=== PATIENT | male | born 1930 | race Caucasian/White ===

== ENCOUNTER 2017-12-02 22:13 | Emergency (ER) | payer MEDICARE ==
[~2017-12-02] VITALS: Ht 172.7 cm; Wt 79.5 kg
[~2017-12-02 22:13] MED LIST: ASPIRIN EC81 MG PO; ATORVASTATIN CA10 MG PO; COQ-1030 M1 PO; ELIQUIS2.5 MG PO; GABAPENTIN100 MG PO; LOSARTAN POT25 MG PO; Levaquin PO; OMEGA 3-6-9 COMPLEX PO; PLAVIX75 MG PO; PRAVASTATIN SOD20 MG PO; RED YEAST600 MG PO; SAW PALMETTO450 MG PO; SAW PALMETTO500 MG PO; TOPROL XL25 MG PO; ULTRAM50 M1 PO; VITAMIN B-121000 MCG PO; VITAMIN D-3400 UNIT PO; VITAMIN E400 UNIT PO
[2017-12-02] MEDS ORDERED: VITAMIN B-12500 MCG PO (22:36)
[2017-12-02] MEDS ORDERED: [UNRECOGNIZED DRUG - CODE] PO (22:37)
[2017-12-02] MEDS ORDERED: VITAMIN E400 UNIT PO (22:38)
[2017-12-02] MEDS ORDERED: TOPROL XL100 MG PO (22:39)
[2017-12-02] MEDS ORDERED: TAMSULOSIN0.4 MG PO (22:39)
[2017-12-02 23:23] LABS: HEMATOCRIT 42.8 % (39.0-50.0); HEMOGLOBIN 14.7 g/dl (14.0-18.0); IMMATURE GRANULOCYTES 0.5 % (0.0-5.0); MEAN CELL VOLUME 93.7 fL CALC (80.0-100.0); MEAN CORPUSCULAR HGB 32.2 pG CALC (26.0-32.0); MEAN CORPUSCULAR HGB CONC 34.3 g/L CALC (32.0-36.0); NEUT# 10.93 thou/uL (1.82-7.42); RED BLOOD COUNT 4.57 mill/uL (4.70-6.10); RED CELL DISTRI WIDTH 13.6 % (11.5-15.5)
[2017-12-02 23:35] LABS: ALBUMIN 4.2 g/dL (3.2-5.0); ALKALINE PHOSPHATASE 87 u/l (38-126); ANION GAP 16 (6-22 (CALC)); BILIRUBIN, TOTAL 0.6 mg/dL (0.0-1.4); BUN 30 mg/dL (8-23); BUN/CREATININE RATIO 27 (12-20 (CALC)); CARBON DIOXIDE 22 mmol/l (22-30); CHLORIDE 104 mmol/l (95-108); CREATININE 1.1 mg/dL (0.7-1.3); GFR > 60 ML/MIN (>=60 (CALC)); GFR FOR AFR.AMER. > 60 ML/MIN (>=60 (CALC)); POTASSIUM 4.3 mmol/l (3.5-5.1); SGOT/AST 28 u/l (19-48); SODIUM 139 mmol/l (137-146); TOTAL PROTEIN 7.6 g/dL (6.3-8.2)
[2017-12-02 23:46] LABS: MYOGLOBIN 78 ng/mL (0 - 121)
[2017-12-03 00:01] VITALS: BP 130/77
== END 2017-12-03 00:15 | disposition home or self-care (01) ==
LOC: ED 22:13
PROVIDERS: Family Medicine
DX: K52.9 Noninfective gastroenteritis and colitis, unspecified (principal); R42 Dizziness and giddiness; I48.91 Unspecified atrial fibrillation; I10 Essential (primary) hypertension; M19.90 Unspecified osteoarthritis, unspecified site; E78.5 Hyperlipidemia, unspecified; Z86.718 Personal history of other venous thrombosis and embolism; Z86.73 Personal history of transient ischemic attack (TIA), and cerebral infarction without residual deficits

== ENCOUNTER → 2018-04-20 | Outpatient (REF) | payer MEDICARE ==
[~2018-04-20] MED LIST changes: +TAMSULOSIN0.4 MG PO; +TOPROL XL100 MG PO; +VITAMIN B-12500 MCG PO; +[UNRECOGNIZED DRUG - CODE] PO
[2018-04-20 10:38] LABS: HEMATOCRIT 42.6 % (39.0-50.0); HEMOGLOBIN 14.1 g/dl (14.0-18.0); MEAN CELL VOLUME 95.3 fL CALC (80.0-100.0); MEAN CORPUSCULAR HGB 31.5 pG CALC (26.0-32.0); MEAN CORPUSCULAR HGB CONC 33.1 g/L CALC (32.0-36.0); RED BLOOD COUNT 4.47 mill/uL (4.70-6.10); RED CELL DISTRI WIDTH 13.8 % (11.5-15.5)
[2018-04-20 10:49] LABS: ALBUMIN 4.2 g/dL (3.2-5.0); ALKALINE PHOSPHATASE 73 u/l (38-126); ANION GAP 16 (6-22 (CALC)); BILIRUBIN, TOTAL 0.7 mg/dL (0.0-1.4); BUN 23 mg/dL (8-23); BUN/CREATININE RATIO 22 (12-20 (CALC)); CALCULATED LDLCHOLESTEROL 86 mg/dL (62-129 (CALC)); CARBON DIOXIDE 23 mmol/l (22-30); CHLORIDE 108 mmol/l (95-108); CHOLESTEROL HDL RATIO 3.5 (<4.4 (CALC)); GFR > 60 ML/MIN (>=60 (CALC)); GFR FOR AFR.AMER. > 60 ML/MIN (>=60 (CALC)); HDL CHOLESTEROL 44 mg/dL (>=40); POTASSIUM 4.1 mmol/l (3.5-5.1); SGOT/AST 28 u/l (19-48); SODIUM 142 mmol/l (137-146); TOTAL CHOLESTEROL 152 mg/dl (0-199); TOTAL PROTEIN 7.1 g/dL (6.3-8.2); TOTAL TRIGLYCERIDES 113 mg/dl (30-149); VLDL CHOLESTROL 23 mg/dl (0-38 (CALC))
[2018-04-20 11:16] LABS: TSH, 3RD GENERATION 5.42 uIU/mL (0.47 - 4.68)
== END | disposition home or self-care (01) ==
LOC: LAB 09:22
PROVIDERS: ATTEND Internal Medicine
DX: I10 Essential (primary) hypertension (principal); E78.49 Other hyperlipidemia; E03.9 Hypothyroidism, unspecified; R53.83 Other fatigue; I50.22 Chronic systolic (congestive) heart failure; E11.65 Type 2 diabetes mellitus with hyperglycemia